=== PATIENT | female | born 1995 | race Caucasian/White ===

== ENCOUNTER 2020-04-21 07:23 | Emergency (ER) | payer OTHER ==
--- NOTE | 2020-04-21 08:32 | ER Document Report ---
ED General - General Chief Complaint: Abdominal Pain Stated Complaint: ABDOMINAL PAIN Time Seen by Provider: 04/21/20 08:01 Mode of Arrival: Ambulatory Information source: Patient - HPI Notes: Patient presents with lower abdominal pain. Is been going on for 2 days. She states she found out recently that she is approximately 1 month . She states she feels a "pop" in her abdomen and this is got her concerned because she is afraid she may be having a miscarriage. This sensation appears to be intermittent. There is no radiation of it. Nothing makes it better or worse. It appears to be mild in intensity. She denies any vaginal bleeding. No problems with urination. No vomiting. She states this is her first . - Related Data Allergies/Adverse Reactions: No Known Allergies Allergy (Verified 04/21/20 07:33) Home Medications: folic acid Past Medical History - General Information source: Patient - Social History Smoking Status: Never Smoker Chew tobacco use (# tins/day): No Frequency of alcohol use: None Drug Abuse: None Family History: Reviewed & Not Pertinent Patient has homicidal ideation: No Past Surgical History: Reports: Hx Orthopedic Surgery Review of Systems - Review of Systems Constitutional: denies: Chills, Fever Cardiovascular: denies: Chest pain, Palpitations Respiratory: denies: Cough, Short of breath -: Yes All other systems reviewed and negative Physical Exam - Vital signs Vitals: Temp Pulse Resp BP Pulse Ox 98.0 F 92 16 115/69 100 04/21/20 07:28 04/21/20 07:28 04/21/20 07:28 04/21/20 07:28 04/21/20 07:28 Interpretation: Normal - General General appearance: Appears well, Alert - HEENT Head: Normocephalic, Atraumatic Eyes: Normal Pupils: PERRL - Respiratory Respiratory status: No respiratory distress Chest status: Nontender Breath sounds: Normal Chest palpation: Normal - Cardiovascular Rhythm: Regular Heart sounds: Normal auscultation Murmur: No - Abdominal Inspection: Normal Distension: No distension Bowel sounds: Normal Tenderness: Tender - Mild bilateral lower quadrant tenderness to palpation. No rebound or guarding. No surgical abdominal signs. Organomegaly: No organomegaly - Back Back: Normal, Nontender - Extremities General upper extremity: Normal inspection, Nontender, Normal color, Normal ROM, Normal temperature General lower extremity: Normal inspection, Nontender, Normal color, Normal ROM, Normal temperature, Normal weight bearing. No: Navi's sign - Neurological Neuro grossly intact: Yes Cognition: Normal Orientation: AAOx4 [place] Coma Scale Eye Opening: Spontaneous Janet Coma Scale Verbal: Oriented [place] Coma Scale Motor: Obeys Commands [place] Coma Scale Total: 15 Speech: Normal Motor strength normal: LUE, RUE, LLE, RLE Sensory: Normal - Psychological Associated symptoms: Normal affect, Normal mood - Skin Skin Temperature: Warm Skin Moisture: Dry Skin Color: Normal Course - Re-evaluation Re-evalutation: 04/21/20 10:35 Patient presents approximate 4 weeks . She has some lower abdominal pain was concerned about miscarriage. At this stage there is no evidence of any significant abnormality. She has a questionable early pole in the uterus but no signs of tubal . Vital signs and exam are unremarkable. Rest her laboratories are also unremarkable. - Vital Signs Vital signs: Temp Pulse Resp BP Pulse Ox 98.0 F 92 16 115/69 100 04/21/20 07:34 04/21/20 07:28 04/21/20 07:28 04/21/20 07:28 04/21/20 07:28 - Laboratory Result Diagrams: 04/21/20 08:35 04/21/20 08:35 Laboratory results interpreted by me: 04/21/20 08:35 Glucose 73 L Total Protein 5.8 L Beta HCG, Quant 89767.00 H - Diagnostic Test Radiology reviewed: Image reviewed, Reports reviewed Discharge - Discharge Clinical Impression: Abdominal pain affecting Condition: Stable Disposition: HOME, SELF-CARE Instructions: Abdominal Pain ([facility]), ([facility]) Additional Instructions: Please follow up with [facility] as soon as possible Forms: Return to Work Referrals: MARIA FERNANDA WREN MD [ACTIVE STAFF] - Follow up in 1 week
[2020-04-21 08:59] LABS: APPEARANCE,URINE SLIGHTLY-CLOUDY; BILIRUBIN,URINE NEGATIVE (NEGATIVE); COLOR,URINE YELLOW; GLUCOSE, URINE NEGATIVE (NEGATIVE); KETONES,URINE NEGATIVE (NEGATIVE); PROTEIN,URINE NEGATIVE (NEGATIVE); URINE SPECIFIC GRAVITY 1.005; UROBILINOGEN,URINE NEGATIVE mg/dL (<2.0)
[2020-04-21 09:06] LABS: ABSOLUTE EOSINOPHILS # (AUTO) 0.1 10^3/uL (0.0-0.6); ABSOLUTE LYMPHOCYTES (AUTO) 1.5 10^3/uL (0.5-4.7); ABSOLUTE MONOCYTES (AUTO) 0.4 10^3/uL (0.1-1.4); ABSOLUTE NEUT (AUTO) 5.1 10^3/uL (1.7-8.2); BASOPHILS % (AUTO) 0.5 % (0-2); HEMOGLOBIN 12.8 g/dL (12.0-15.5); LYMPHOCYTES % (AUTO) 20.7 % (13-45); MEAN CORPUSCULAR HEMOGLOBIN 32.6 pg (27.0-33.4); MEAN CORPUSCULAR HGB CONC 35.6 g/dL (32.0-36.0); MEAN CORPUSCULAR VOLUME 92 fl (80-97); MONOCYTES % (AUTO) 6.2 % (3-13); PLATELET COUNT 239 10^3/uL (150-450); RED BLOOD COUNT 3.93 10^6/uL (3.72-5.28); RED CELL DISTRIBUTION WIDTH 13.9 % (11.5-14.0); SEGMENTED NEUTROPHILS % (AUTO) 70.6 % (42-78); TOTAL CELLS COUNTED % (AUTO) 100 %; WHITE BLOOD COUNT 7.2 10^3/uL (4.0-10.5)
[2020-04-21 09:10] LABS: ALBUMIN 3.5 g/dL (3.5-5.0); ALKALINE PHOSPHATASE 41 U/L (38-126); ASPARTATE AMINO TRANSFERASE 19 U/L (14-36); BILIRUBIN,DIRECT 0.2 mg/dL (0.0-0.4); BILIRUBIN,TOTAL 0.4 mg/dL (0.2-1.3); BLOOD UREA NITROGEN 11 mg/dL (7-20); CALCIUM 8.8 mg/dL (8.4-10.2); GLUCOSE 73 mg/dL (75-110); TOTAL PROTEIN 5.8 g/dL (6.3-8.2)
[2020-04-21 09:15] LABS: ANION GAP 6 (5-19); CARBON DIOXIDE 26 mmol/L (22-30); CHLORIDE 106 mmol/L (98-107)
--- NOTE | 2020-04-21 10:27 | RADIOLOGY REPORT (SQ) ---
EXAM DESCRIPTION: U/S OB TRANSVAGINAL W/O DOP IMAGES COMPLETED DATE/TIME: 04/21/2020 9:39 am REASON FOR STUDY: preg/pain COMPARISON: None. TECHNIQUE: Transvaginal static and realtime grayscale images acquired of the pelvis. Additional lanny cted spectral and color Doppler images recorded. All images stored on PACs. CLINICAL AGE: 6 week 5 day. bHC,665. LIMITATIONS: None. FINDINGS: UTERUS: No masses. No anomalies. GESTATIONAL SAC: Normal shape. Measurements correspond with a 5 week 5 day gestation. YOLK SAC: Yes. POLE: Possible tiny pole. No cardiac activity detectable at this time. RIGHT ADNEXA: Normal ovary with normal vascular flow. No adnexal free fluid. No adnexal masses. LEFT ADNEXA: Normal ovary with normal vascular flow. No adnexal free fluid. Heterogenous mass measuring 2.2 cm. May be a hemorrhagic corpus luteum. FREE FLUID: None. OTHER: No other significant finding. IMPRESSION: POSSIBLE EARLY INTRAUTERINE . BHCG LEVEL APPROPRIATE FOR ENDOMETRIAL FINDINGS. FOLLOW-UP ULTRASOUND SHOULD BE CONSIDERED TO CONFIRM APPROPRIATE DEVELOPMENT. Trimester of : First trimester - 0 to 13 weeks. TECHNICAL DOCUMENTATION: JOB ID: [id number] 2010 [employer]- All Rights Reserved Reading location - IP/workstation name: [email or web address]
[2020-04-21 10:49] VITALS: BP 89/58
== END 2020-04-21 10:49 | disposition home or self-care (01) ==
LOC: ER 07:23
DX: O26.891 Other specified pregnancy related conditions, first trimester (principal); R10.30 Lower abdominal pain, unspecified; Z3A.01 Less than 8 weeks gestation of pregnancy
CPT/HCPCS: 36415; 76817; 80053; 81001; 84702; 85025; 99284

== ENCOUNTER 2020-07-16 06:29 | Emergency (ER) | payer OTHER ==
[2020-07-16 08:44] LABS: ABSOLUTE BASOPHILS # (AUTO) 0.1 10^3/uL (0.0-0.2); ABSOLUTE EOSINOPHILS # (AUTO) 0.1 10^3/uL (0.0-0.6); ABSOLUTE LYMPHOCYTES (AUTO) 1.7 10^3/uL (0.5-4.7); ABSOLUTE MONOCYTES (AUTO) 0.5 10^3/uL (0.1-1.4); ABSOLUTE NEUT (AUTO) 5.4 10^3/uL (1.7-8.2); BASOPHILS % (AUTO) 1.1 % (0-2); EOSINOPHILS % (AUTO) 1.1 % (0-6); HEMATOCRIT 33.6 % (36.0-47.0); HEMOGLOBIN 11.4 g/dL (12.0-15.5); LYMPHOCYTES % (AUTO) 21.9 % (13-45); MEAN CORPUSCULAR HEMOGLOBIN 32.2 pg (27.0-33.4); MEAN CORPUSCULAR HGB CONC 34.1 g/dL (32.0-36.0); MEAN CORPUSCULAR VOLUME 95 fl (80-97); MONOCYTES % (AUTO) 6.9 % (3-13); PLATELET COUNT 208 10^3/uL (150-450); RED BLOOD COUNT 3.55 10^6/uL (3.72-5.28); RED CELL DISTRIBUTION WIDTH 14.6 % (11.5-14.0); TOTAL CELLS COUNTED % (AUTO) 100 %; WHITE BLOOD COUNT 7.9 10^3/uL (4.0-10.5)
--- NOTE | 2020-07-16 08:44 | ER Document Report ---
ED General - General Chief Complaint: Abdominal Pain Stated Complaint: DIZZY,ABDOMINAL PAIN Time Seen by Provider: 07/16/20 07:43 Primary Care Provider: PURVI GALAVIZ PA-C [Primary Care Provider] - Follow up as needed - HPI Notes: Chief complaint: with abdominal cramping and syncopal episode History of present illness: 25-year-old female 1 para 0 [facility] currently about 17 weeks EGA reports that she has been intermittently having some right-sided abdominal cramping for the last week. She works as a cashier supervisor in a restaurant and says that 3 days ago when she had such a cramp she sat down and think she may have momentarily lost consciousness. She denies any fever chills. She denies nausea vomiting. She denies dysuria. She denies any vaginal discharge or vaginal bleeding. Patient says she was in excellent general health prior to her with no past history of hospitalizations, major surgery or serious illnesses. She has a history of allergy to sulfa drugs. She is a non-smoker and denies consumption of alcohol or use of drugs. - Related Data Allergies/Adverse Reactions: Sulfa (Sulfonamide Antibiotics) Allergy (Mild, Verified 07/16/20 07:58) Hives Past Medical History - General Information source: Patient - Social History Smoking Status: Never Smoker Chew tobacco use (# tins/day): No Frequency of alcohol use: None Drug Abuse: None Family History: Reviewed & Not Pertinent Past Surgical History: Reports: Hx Orthopedic Surgery Review of Systems - Review of Systems Notes: Constitutional: Negative for fever. HENT: Negative for sore throat. Eyes: Negative for visual changes. Cardiovascular: Negative for chest pain. Respiratory: Negative for shortness of breath. Gastrointestinal: As per HPI. Genitourinary: As per HPI. Musculoskeletal: Negative for back pain. Skin: Negative for rash. Neurological: As per HPI. 10 point ROS negative except as marked above and in HPI. Physical Exam - Vital signs Vitals: Temp Pulse Resp BP Pulse Ox 97.8 F 72 16 116/65 100 07/16/20 06:51 07/16/20 06:51 07/16/20 06:51 07/16/20 06:51 07/16/20 06:51 - Notes Notes: GENERAL: Female patient approximately stated age appearing in no acute distress. SKIN: Good turgor no rashes. HEAD: Normocephalic atraumatic. EYES: PERRLA. EOMI. Conjunctivae and sclerae clear. EARS: CANALS AND TMS CLEAR. NOSE: CLEAR. MOUTH: Moist mucosa. Good dentition. No stridor or edema. No drooling. NECK: Supple. No masses or thyromegaly. No adenopathy. Carotids 2+ without bruits. No JVD. BACK: Symmetrical without tenderness. CHEST: Respirations unlabored. Breath sounds clear and symmetrical. HEART: Regular rhythm. No murmur gallop or rub. ABDOMEN: Gravid uterus consistent with dates. No contractions. movement is noted. Soft nontender without hepatosplenomegaly or rebound. Bowel sounds normally active. No bruits. GENITALIA: Deferred. EXTREMITIES: No edema. No calf tenderness. Cap refill less than 1.5 seconds. Dorsalis pedis and posterior tibial pulses 3+ and symmetrical. NEUROLOGICAL: GCS 15. Alert and oriented x3. Normal gait. Fluent speech. Cranial nerves II through XII intact. Sensorimotor and cerebellar normal. Normal tone. PSYCHIATRIC: Appropriate affect. Course - Re-evaluation Re-evalutation: 07/16/20 11:38 OB ultrasound shows normal IUP 17 weeks EGA. Patient has a few white cells in her urine although she does not have leukocyte esterase present. Urine has been cultured. CBC and chemistry profile are unremarkable. Findings are reviewed with RECREATIONAL COUNSELOR on-call, Dr. Cary Houston. We agreed that patient will receive oral antibiotics and increase oral fluids and follow-up in the office next 3 days. Findings, clinical impression and plan of treatment have been discussed with patient/family. Understanding of current findings and recommendations has been acknowledged by them and there is agreement regarding disposition and follow-up. - Vital Signs Vital signs: Temp Pulse Resp BP Pulse Ox 97.8 F 72 15 89/61 L 100 07/16/20 06:51 07/16/20 06:51 07/16/20 11:01 07/16/20 11:00 07/16/20 11:01 - Laboratory Results Result Diagrams: 07/16/20 08:30 07/16/20 09:41 Laboratory Results Interpreted: 07/16/20 07/16/20 08:30 09:41 RBC 3.55 L Hgb 11.4 L Hct 33.6 L RDW 14.6 H Sodium 134.4 L Creatinine 0.47 L Calcium 8.2 L Total Protein 5.6 L Albumin 3.0 L Beta HCG, Quant 76764.00 H Critical Laboratory Results Reviewed: Yes Attending or Supervising Physician who Reviewed Labs: KRISTOPHER WEN - Radiology Results Radiology Results Interpreted: 07/16/20 11:38 Obstetrics Ultrasound 07/16/20 08:39 IMPRESSION: Single live intrauterine gestation with size concordant with dates. Trimester of : Second trimester - 13 weeks 1 day to 27 weeks 6 days. Critical Radiology Results Reviewed: Yes Attending or Supervising Physician who Reviewed Radiology: KRISTOPHER WEN Discharge - Discharge Clinical Impression: Pelvic pain, IUP 17 weeks EGA Urinary tract infection Qualifiers: Urinary tract infection type: acute cystitis Hematuria presence: without hematuria Qualified Code(s): N30.00 - Acute cystitis without hematuria Condition: Stable Disposition: HOME, SELF-CARE Additional Instructions: Increase oral fluids. Return here as needed for new or worsening symptoms: Pain that is worsening or unimproved Uncontrolled vomiting High fever or shaking chills Overall worsening Contact your RECREATIONAL COUNSELOR for follow-up within the next 3 to 5 days. Prescriptions: Cephalexin Monohydrate [Keflex 500 mg Capsule] 500 mg PO Q6H 5 Days capsule Referrals: PURVI GALAVIZ PA-C [Primary Care Provider] - Follow up as needed SHEREEN HOUSTON MD [ACTIVE STAFF] - Follow up as needed
[2020-07-16 08:50] LABS: AMORPHOUS SEDIMENT,URINE TRACE /HPF; APPEARANCE,URINE CLOUDY; BILIRUBIN,URINE NEGATIVE (NEGATIVE); COLOR,URINE YELLOW; GLUCOSE, URINE NEGATIVE (NEGATIVE); KETONES,URINE NEGATIVE (NEGATIVE); LEUKOCYTE ESTERASE,URINE NEGATIVE (NEGATIVE); NITRITE,URINE NEGATIVE (NEGATIVE); PROTEIN,URINE NEGATIVE (NEGATIVE); URINE SPECIFIC GRAVITY 1.019; UROBILINOGEN,URINE NEGATIVE mg/dL (<2.0)
--- NOTE | 2020-07-16 09:01 | EKG REPORT ---
SEVERITY:- NORMAL ECG - SINUS RHYTHM : Confirmed by: Marie Bergman MD 16-Jul-2020 09:00:31
[2020-07-16 10:22] LABS: ALKALINE PHOSPHATASE 40 U/L (38-126); ANION GAP 5 (5-19); ASPARTATE AMINO TRANSFERASE 23 U/L (14-36); BILIRUBIN,TOTAL 0.3 mg/dL (0.2-1.3); BLOOD UREA NITROGEN 8 mg/dL (7-20); CALCIUM 8.2 mg/dL (8.4-10.2); CARBON DIOXIDE 24 mmol/L (22-30); CHLORIDE 105 mmol/L (98-107); GLUCOSE 80 mg/dL (75-110); POTASSIUM 3.8 mmol/L (3.6-5.0); TOTAL PROTEIN 5.6 g/dL (6.3-8.2)
[2020-07-16 11:10] VITALS: BP 89/61
--- NOTE | 2020-07-16 11:24 | RADIOLOGY REPORT (SQ) ---
EXAM DESCRIPTION: U/S OB 14+ TRNABD 1GES W/O DOP IMAGES COMPLETED DATE/TIME: 07/16/2020 10:36 am REASON FOR STUDY: pain COMPARISON: None. TECHNIQUE: Limited transabdominal grayscale ultrasound for evaluation of specific requested obstetri radha parameters. LIMITATIONS: None. FINDINGS: EGA: 17 weeks, 4 days Calculated using BPD,FL,HC,AC documented on images. No discrepancy w ith clinical dates. ARIES: 12/20/2020 EFW: 192 grams CERVICAL LENGTH: 2.7 Closed. JAREK: adequate amount cm. FHR: 143 beats per minute. PRESENTATION: Breech. PLACENTA: Anterior ANATOMY: Not assessed OTHER: No other significant findings. IMPRESSION: Single live intrauterine gestation with size concordant with dates. Trimester of : Second trimester - 13 weeks 1 day to 27 weeks 6 days. TECHNICAL DOCUMENTATION: JOB ID: [id number] 2010 [employer]- All Rights Reserved Reading location - IP/workstation name: [email or web address]
== END 2020-07-16 12:06 | disposition home or self-care (01) ==
LOC: ER 06:29
DX: O23.12 Infections of bladder in pregnancy, second trimester (principal); R42 Dizziness and giddiness; R10.9 Unspecified abdominal pain; Z3A.17 17 weeks gestation of pregnancy
CPT/HCPCS: 36415; 76805; 80053; 81001; 83690; 84702; 85025; 93005; 93010; 99285